=== PATIENT | female | born 1960 | race Two or more races ===

== ENCOUNTER 2019-09-20 06:35 | Day surgery (SDC) | payer OTHER | END 2019-09-20 10:47 | disposition home or self-care (01) | LOC: AMB-ENDOS 06:35 | DX: K62.4 Stenosis of anus and rectum (principal); K64.8 Other hemorrhoids; K57.30 Diverticulosis of large intestine without perforation or abscess without bleeding ==

== ENCOUNTER 2021-01-03 09:30 | Inpatient (IN) | payer OTHER ==
[~2021-01-03] VITALS: Ht 154.9 cm; Wt 63.5 kg
[2021-01-03] MEDS ORDERED: ALTACE10 MG PO (13:05)
[2021-01-03] MEDS ORDERED: ZETIA10 MG PO (13:06)
[2021-01-03] MEDS ORDERED: XYZAL5 MG PO (13:06)
[2021-01-03] MEDS ORDERED: CRESTOR20 MG PO (13:06)
[2021-01-03] MEDS ORDERED: LINZESS290 MCG PO (13:07)
[2021-01-14] MEDS ORDERED: CLOTRIMAZOLE-BE15 G1 (08:21)
[2021-01-14] MEDS ORDERED: MONTELUKAST SOD10 MG (08:22)
[2021-01-14] MEDS ORDERED: NORVASC2.5 MG (08:22)
[2021-01-14] MEDS ORDERED: FAMOTIDINE40 MG (08:22)
[2021-01-14] MEDS ORDERED: PANTOPRAZOLE SO40 MG (08:22)
[2021-01-14] MEDS ORDERED: KETOCONAZOLE15 GM (08:22)
[2021-01-14] MEDS ORDERED: PROAIR HFA8.5 GM (08:22)
[2021-01-17] MEDS ORDERED: HYOSCYAMINE0.125 M1 SL (09:54)
[2021-01-17] MEDS ORDERED: ULTRACET PO (09:56)
[2021-01-17] MEDS ORDERED: DICLOFENAC SODI75 MG PO (09:57)
[2021-01-17] MEDS ORDERED: PROTONIX40 MG PO (09:58)
== END 2021-01-17 12:53 | disposition home or self-care (01) | DRG 331 ==
LOC: ADM 09:30 → EDSTATUS 09:30 → SURH 01-10 09:30 → O/R 01-14 06:00 → SURH 01-14 06:00
PROVIDERS: ADMIT Surgery; ATTEND Surgery
PROC: 0D1N4ZP Bypass Sigmoid Colon to Rectum, Percutaneous Endoscopic Approach (ICD-10-PCS; 2021-01-14)
PROC: 0DTP4ZZ Resection of Rectum, Percutaneous Endoscopic Approach (ICD-10-PCS; principal; 2021-01-14 11:00)
DX: K57.32 Diverticulitis of large intestine without perforation or abscess without bleeding (principal); R14.0 Abdominal distension (gaseous); K52.3 Indeterminate colitis; I10 Essential (primary) hypertension; Z20.822 Contact with and (suspected) exposure to COVID-19

== ENCOUNTER 2021-02-07 13:40 | Emergency (ER) | payer OTHER ==
[~2021-02-07] VITALS: Ht 154.9 cm; Wt 61.7 kg
[~2021-02-07 13:40] MED LIST: ALTACE10 MG PO; CLOTRIMAZOLE-BE15 G1; CRESTOR20 MG PO; DICLOFENAC SODI75 MG PO; FAMOTIDINE40 MG; HYOSCYAMINE0.125 M1 SL; KETOCONAZOLE15 GM; LINZESS290 MCG PO; MONTELUKAST SOD10 MG; NORVASC2.5 MG; PANTOPRAZOLE SO40 MG; PROAIR HFA8.5 GM; PROTONIX40 MG PO; ULTRACET PO; XYZAL5 MG PO; ZETIA10 MG PO
== END 2021-02-07 18:15 | disposition home or self-care (01) ==
LOC: ER 13:40
DX: M54.89 Other dorsalgia (principal); R10.84 Generalized abdominal pain

== ENCOUNTER 2021-02-17 02:12 | Emergency (ER) | payer OTHER ==
[~2021-02-17] VITALS: Ht 154.9 cm; Wt 60.8 kg
[2021-02-17] MEDS ORDERED: CARAFATE1 GM PO (06:49)
[2021-02-17] MEDS ORDERED: DICY20TA PO (06:49)
[2021-02-17] MEDS ORDERED: PEPCID AC20 MG PO (06:49)
[2021-02-17] MEDS ORDERED: DOLOGESIC-DF 51 EACH PO (06:49)
== END 2021-02-17 07:00 | disposition home or self-care (01) ==
LOC: ER 02:12
DX: R10.13 Epigastric pain (principal); R11.2 Nausea with vomiting, unspecified